=== PATIENT | male | born 1950 | race Caucasian/White ===

== ENCOUNTER → 2018-12-19 | Outpatient (CLI) | payer MEDICARE | END | disposition home or self-care (01) | LOC: CFH 08:27 | PROVIDERS: ATTEND Internal Medicine Cardiovascular Disease | DX: I34.0 Nonrheumatic mitral (valve) insufficiency (principal); I11.9 Hypertensive heart disease without heart failure | CPT/HCPCS: 93306 ==

== ENCOUNTER 2020-01-22 08:20 | Outpatient (CLI) | payer MEDICARE | END 2020-01-22 23:59 | disposition home or self-care (01) | LOC: CFH 08:20 | PROVIDERS: ATTEND Internal Medicine Cardiovascular Disease | DX: I08.0 Rheumatic disorders of both mitral and aortic valves (principal) | CPT/HCPCS: 93306 ==

== ENCOUNTER → 2021-01-13 | Outpatient (CLI) | payer MEDICARE | END | disposition home or self-care (01) | LOC: CVU 08:24 | PROVIDERS: ATTEND Internal Medicine Cardiovascular Disease | DX: I08.0 Rheumatic disorders of both mitral and aortic valves (principal); I11.9 Hypertensive heart disease without heart failure | CPT/HCPCS: 93306; 93356 ==

== ENCOUNTER → 2021-05-18 | Outpatient (CLI) | payer MEDICARE | END | disposition home or self-care (01) | LOC: ROC 11:52 | PROVIDERS: ATTEND Radiology Radiation Oncology | DX: C20 Malignant neoplasm of rectum (principal); N40.1 Benign prostatic hyperplasia with lower urinary tract symptoms; C61 Malignant neoplasm of prostate | CPT/HCPCS: G0463 ==

== ENCOUNTER → 2021-06-01 | Outpatient (CLI) | payer MEDICARE ==
[~2021-06-01] MED LIST: ASPI-963 PO; BENA40TA3 PO; CAPE500T24 PO; HYDR25TA6 PO; ONDA4TAB7 PO; PROC10TA78 PO
== END | disposition home or self-care (01) ==
LOC: ROC 07:37
PROVIDERS: ATTEND Radiology Radiation Oncology
DX: C20 Malignant neoplasm of rectum (principal); C61 Malignant neoplasm of prostate; N40.1 Benign prostatic hyperplasia with lower urinary tract symptoms
CPT/HCPCS: G0463